=== PATIENT | male | born 1970 | race Caucasian/White ===

== ENCOUNTER 2023-05-30 00:25 | Emergency (ER) | payer SELFPAY ==
[2023-05-30] MEDS ORDERED: Ondansetron PF 4 MG/2 ML Vial ONE ×2 (00:54→03:56)
[2023-05-30] MEDS ORDERED: Famotidine/PF 20 mg/2ml Vial ONE (00:54)
[2023-05-30] MEDS ORDERED: Lactated Ringer's 1,000 ML ONE ×2 (01:10→03:52)
[2023-05-30 01:19] LABS: Band 18 % (5-11); Hematocrit 53.6 % (42.0-52.0); Hemoglobin 16.6 g/dL (14.0-18.0); Lymphocytes 6 % (21-51); MDiff Complete? YES; Mean Corpuscular Hemoglobin 29.1 pg (27.0-31.0); Mean Corpuscular Volume 93.7 fl (78.0-98.0); Mean Platelet Volume 10.5 fL (7.4-10.4); Monocytes 3 % (0-10); Neutrophil 73 % (42-75); Platelet Adequacy Comment Appears Adequate; Platelet Count 242 10x3/uL (130-400); RBC Distribution Width 13.4 % (11.5-14.5); Red Blood Cell (RBC) Count 5.72 mill/uL (4.70-6.10); Toxic Granulation SLIGHT; White Blood Cell (WBC) Count 6.8 10x3/uL (4.8-10.8)
[2023-05-30 01:27] LABS: ALT (SGPT) 274 U/L (8-55); AST (SGOT) 390 U/L (5-34); Albumin 3.7 g/dL (3.5-5.0); Alkaline Phosphatase 129 U/L (40-110); Anion Gap 17 mmol/L (10-20); BUN (Urea Nitrogen) 13 mg/dL (8.4-25.7); Calc. Creatinine Clearance 0 mL/min (70-130); Calcium 8.4 mg/dL (7.8-10.44); Carbon Dioxide 20 mmol/L (22-29); Chloride 105 mmol/L (98-107); Estimated GFR 82; Globulin 2.8 g/dL (2.4-3.5); Glucose 189 mg/dL (70-105); Lipase 105 U/L (8-78); Potassium 4.2 mmol/L (3.5-5.1); Protein, Total 6.5 g/dL (6.0-8.3); Sodium 138 mmol/L (136-145); Troponin I 0.014 ng/mL (< 0.028)
[2023-05-30] MEDS ORDERED: Morphine 4 MG/ML VIAL ONE (01:31)
[2023-05-30] MEDS ORDERED: Sodium Chloride 0.9% 100 ML ONE (01:31)
[2023-05-30] MEDS ORDERED: Piperacillin/Tazobactam 4.5 GM VIAL ONE (01:31)
[2023-05-30 03:47] LABS: Lactic Acid 3.3 mmol/L (0.5-2.2)
[2023-05-30] MEDS ORDERED: Iopamidol 370 76% 200 ML VIAL ONE (08:18)
== END 2023-05-30 06:34 | disposition short-term general hospital (02) ==
LOC: MADERS 00:25
DX: A41.9 Sepsis, unspecified organism (principal); K81.0 Acute cholecystitis; R91.1 Solitary pulmonary nodule; R74.02 Elevation of levels of lactic acid dehydrogenase [LDH]
CPT/HCPCS: 36415; 71045; 71275; 74177; 80053; 83605; 83690; 83880; 84484; 85025; 85379; 87040; 93005; 94760; 96361; 96365; 96375; 96376; J2270; J2405; J2543; J3490; J7120; S0028